=== PATIENT | female | born 1975 | race African-American/Black ===

== ENCOUNTER 2017-12-04 05:24 | Emergency (ER) | payer SELFPAY ==
[~2017-12-04] VITALS: Ht 160 cm; Wt 91.0 kg
[2017-12-04] MEDS ORDERED: SODIUM CHLORIDE 0.9% 1,000 ML IV ONE (05:59)
[2017-12-04] MEDS ORDERED: ACETAMINOPHEN 325MG TABLET PO STA (05:59)
[2017-12-04 06:33] LABS: BASOPHILS % 0.5 % (0.0-2.0); EOSINOPHILS % 0.8 % (0.0-5.0); HEMATOCRIT. 34.1 % (36.0-48.0); HEMOGLOBIN. 11.2 g/dL (12.0-16.0); LYMPHOCYTES % 13.4 % (20.0-50.0); MEAN CORPUSCULAR HEMOGLOBIN 22.7 pg (28.0-32.0); MEAN CORPUSCULAR VOLUME 69.4 fL (81.0-99.0); MEAN PLATELET VOLUME 11.2 fl (7.4-10.4); MONOCYTES % 13.1 % (2.0-8.0); NEUTROPHILS % 72.2 % (40.0-76.0); PLATELET 133 x1000/uL (130-400); RED BLOOD CELL COUNT 4.92 mill/uL (4.2-5.4); RED CELL DISTRIBUTION WIDTH 16.1 % (11.6-14.6)
[2017-12-04 06:54] LABS: CHLORIDE 104 mEq/L (98-107); PROTHROMBIN TIME 10.9 sec (9.4-11.6)
[2017-12-04 07:20] LABS: CLARITY URINE CLEAR (CLEAR); COLOR URINE YELLOW (YELLOW); KETONES URINE NEGATIVE (NEGATIVE); LEUKOCYTE ESTERASE URINE NEGATIVE (NEGATIVE); NITRITE URINE NEGATIVE (NEGATIVE); OCCULT BLOOD URINE NEGATIVE (NEGATIVE); PROTEIN URINE NEGATIVE (NEGATIVE); SPECIFIC GRAVITY URINE 1.016 (1.005-1.030); UROBILINOGEN URINE 0.2 E.U./dL (0.2-1.0)
[2017-12-04 07:47] LABS: PLATELET ESTIMATE NORMAL
[2017-12-04] MEDS ORDERED: ONDANSETRON HCL 4MG/2ML VIAL IV ONE (08:30)
[2017-12-04 08:40] VITALS: BP 131/78
== END 2017-12-04 08:45 | disposition home or self-care (01) ==
LOC: ER 05:24
DX: B34.9 Viral infection, unspecified (principal); R50.9 Fever, unspecified; D50.9 Iron deficiency anemia, unspecified; J02.9 Acute pharyngitis, unspecified; Z98.890 Other specified postprocedural states
CPT/HCPCS: 36415; 71045; 80053; 81003; 81025; 85025; 85610; 87070; 87430; 87804; 96361; 96374; 99285; J2405; J7030; Z7610

== ENCOUNTER 2021-01-24 11:38 | Emergency (ER) | payer OTHER ==
[~2021-01-24] VITALS: Ht 160 cm; Wt 83.0 kg
[2021-01-24] MEDS ORDERED: METF-873 PO (12:03)
[2021-01-24] MEDS ORDERED: DOXYCYCLINE HYCLATE 100MG CAPSULE PO ONE (12:45)
[2021-01-24] MEDS ORDERED: DOXY100C2 MT (14:42)
[2021-01-24 15:44] VITALS: BP 138/74
== END 2021-01-24 15:41 | disposition home or self-care (01) ==
LOC: ER 11:38
DX: L03.011 Cellulitis of right finger (principal); E11.9 Type 2 diabetes mellitus without complications; I49.9 Cardiac arrhythmia, unspecified; Z90.49 Acquired absence of other specified parts of digestive tract
CPT/HCPCS: 10060; 82962; 93005; 99283; Z7610

== ENCOUNTER 2022-04-10 14:51 | Emergency (ER) | payer MEDICAID ==
[~2022-04-10] VITALS: Ht 165.1 cm; Wt 61.0 kg
[~2022-04-10 14:51] MED LIST: DOXY100C5 MT; METF-873 PO
[2022-04-10 15:03] VITALS: BP 167/79
== END 2022-04-11 09:18 | disposition left against medical advice (07) ==
LOC: ER 14:51
DX: Z53.21 Procedure and treatment not carried out due to patient leaving prior to being seen by health care provider (principal)